=== PATIENT | male | born 1985 | race Caucasian/White ===

== ENCOUNTER 2018-09-24 10:38 | Emergency (ER) | payer SELFPAY ==
[2018-09-24] MEDS ORDERED: IBUPROFEN 400 MG TABLET. PO ONE (11:00)
[2018-09-24 12:17] VITALS: BP 137/44
--- NOTE | 2018-09-24 12:17 | RAD ---
SACRUM COCCYX 3V History: FALL ON COCCYX, PAIN Comparison: None. Findings: 3 views of the sacrum and coccyx are submitted. No acute displaced fracture is identified by radiographs. Impression: 1. No acute fracture is identified by radiographs. Electronically signed by: Ryder Aleman MD (09/24/2018 12:13 PM) [id number]
[2018-09-24] MEDS ORDERED: NAPR-683 PO (12:26)
[2018-09-24] MEDS ORDERED: CYCL-331 PO (12:26)
--- NOTE | 2018-09-24 12:26 | PHYS DOC ---
Past History Past Medical History: No Pertinent History Past Surgical History: Other Smoking: Non-smoker Alcohol Use: None Drug Use: None Adult General Chief Complaint Chief Complaint: LOWER BACK PAIN OR INJURY HPI HPI Patient is a 33 year old homeless male who presents with injury to 10 point after fall. Patient states he had a fall 4 or 5 days ago after slipping on ice and landed on his tailbone area and since then has had constant pain that getting worse with sitting down and having bowel movements. Patient denies focal neuro deficit, urine and bowel incontinence, fever and chills, nausea and vomiting, other injuries. Review of Systems Review of Systems Constitutional: Denies fever or chills [] Eyes: Denies change in visual acuity, redness, or eye pain [] HENT: Denies nasal congestion or sore throat [] Respiratory: Denies cough or shortness of breath [] Cardiovascular: No additional information not addressed in HPI [] GI: Denies abdominal pain, nausea, vomiting, bloody stools or diarrhea [] : Denies dysuria or hematuria [] Musculoskeletal: Reports back pain, denies joint pain [] Integument: Denies rash or skin lesions [] Neurologic: Denies headache, focal weakness or sensory changes [] Endocrine: Denies polyuria or polydipsia [] All other systems were reviewed and found to be within normal limits, except as documented in this note. Current Medications Current Medications Current Medications Medications (Trade) Dose Ordered Sig/[facility] Start Time Stop Time Status Last Admin Dose Admin Ibuprofen (Motrin) 800 mg 1X ONCE 09/24/18 11:00 09/24/18 11:06 DC 09/24/18 11:15 800 MG Allergies Allergies Allergies Coded Allergies Type Severity Reaction Last Updated Verified Penicillins Allergy Unknown 02/10/16 Yes amoxicillin Allergy Unknown 02/10/16 Yes codeine Allergy Unknown 02/10/16 Yes Physical Exam Physical Exam Constitutional: Well developed, well nourished, mild distress, non-toxic appearance. [] HENT: Normocephalic, atraumatic. Eyes: PERRLA, EOMI, conjunctiva normal, no discharge. [] Neck: Normal range of motion, no tenderness, supple, no stridor. [] Cardiovascular:Heart rate regular rhythm, no murmur [] Lungs & Thorax: Bilateral breath sounds clear to auscultation [] Skin: Warm, dry, no erythema, no rash. [] Back: No tenderness, no CVA tenderness, sacral area with marked tenderness without deformity or crepitation or change of color of skin. [] Extremities: No tenderness, no cyanosis, no clubbing, ROM intact, no edema. [] Neurologic: Alert and oriented X 3, normal motor function, normal sensory function, no focal deficits noted. [] Psychologic: Affect normal, judgement normal, mood normal. [] Current Patient Data Vital Signs Vital Signs Date Time Temp Pulse Resp B/P (MAP) Pulse Ox O2 Delivery O2 Flow Rate FiO2 09/24/18 12:17 61 14 137/44 (75) 98 Room Air 09/24/18 10:42 98.1 EKG EKG [] Radiology/Procedures Radiology/Procedures [address] [address] IMAGING REPORT Signed PATIENT: FERN KIRAN ACCOUNT: [id number] : 1985 LOCATION: ER AGE: 33 SEX: M EXAM STATUS: REG ER ORD. PHYSICIAN: RICHIE MUNIZ MD REASON: fall and injury to tailbone PROCEDURE: SACRUM & COCCYX 3V SACRUM COCCYX 3V History: FALL ON COCCYX, PAIN Comparison: None. Findings: 3 views of the sacrum and coccyx are submitted. No acute displaced fracture is identified by radiographs. Impression: 1. No acute fracture is identified by radiographs. Electronically signed by: Ryder Fatima MD (09/24/2018 12:13 PM) [facility] DICTATED AND SIGNED BY: RYDER FATIMA MD DATE: 09/24/18 1212 CC: RICHIE MUNIZ MD; PCP,NO ~ Course & Med Decision Making Course & Med Decision Making Pertinent Imaging studies reviewed. (See chart for details) discharge: I've spoken with the patient and/or caregivers. I've explained the patient's condition, diagnosis and treatment plan based on information available to me at this time. I've answered the patient's and/or caregivers questions and addressed any concerns. The patient and/or caregivers have a good understanding the patient's diagnosis, condition and treatment plan as can be expected at this point. Vital signs have been stabilized. The patient's condition is stable for discharge from the emergency department. The patient will pursue further outpatient evaluation with her primary care provider or other designated consulting physician as outlined in the discharge instructions. Patient and/or caregivers are agreeable to this plan of care and follow-up instructions have been explained in detail. The patient and/or caregivers have received these instructions in written format and expressed understanding of these discharge instructions. The patient and her caregivers are aware that if any significant change in condition or worsening of symptoms should prompt him to immediately return to this of the closest emergency department. If an emergent department is not readily available I would encourage him to call 911. Dragon Disclaimer Dragon Disclaimer This electronic medical record was generated, in whole or in part, using a voice recognition dictation system. Departure Departure: Impression: Primary Impression: Sacral contusion Additional Impression: Homeless Disposition: HOME, SELF-CARE (@1223) Condition: IMPROVED Referrals: PCP,NO (PCP) Patient Instructions: Tailbone Injury Additional Instructions: Apply ice on the affected area Follow-up with your primary care physician in 3-5 days Return to ER if not getting better Scripts Cyclobenzaprine Hcl (CYCLOBENZAPRINE HCL) 10 Mg Tablet 1 TAB PO TID for pain, #20 TAB Prov: RICHIE MUNIZ MD 09/24/18 Naproxen (NAPROSYN) 500 Mg Tablet 1 TAB PO BID for pain, #20 TAB Prov: RICHIE MUNIZ MD 09/24/18 Problem Qualifiers RICHIE MUNIZ MD Sep 24, 2018 12:26
== END 2018-09-24 12:32 | disposition home or self-care (01) ==
LOC: ER 10:38
DX: S30.0XXA Contusion of lower back and pelvis, initial encounter (principal); Z59.0 Homelessness; Z88.0 Allergy status to penicillin; Z88.5 Allergy status to narcotic agent; Z88.1 Allergy status to other antibiotic agents; W00.0XXA Fall on same level due to ice and snow, initial encounter; Y93.89 Activity, other specified; Y92.89 Other specified places as the place of occurrence of the external cause; Y99.8 Other external cause status
CPT/HCPCS: 72220; 99284

== ENCOUNTER 2018-12-21 18:27 | Emergency (ER) | payer SELFPAY ==
[~2018-12-21] VITALS: Ht 175.3 cm; Wt 69.3 kg
[2018-12-21 18:27] VITALS: BP 128/70
[~2018-12-21 18:27] MED LIST: CYCL-331 PO; NAPR-683 PO
--- NOTE | 2018-12-21 18:32 | ED.ADGEN ---
Past History Past Medical History: No Pertinent History Past Surgical History: Other Smoking: Non-smoker Alcohol Use: None Drug Use: None Adult General Chief Complaint Chief Complaint " I feel like I ve gotten dehydrated... " HPI HPI Patient is a 33 year old male who presents with above hx and complaints of dehydration. Patient reports heavy alcohol use today. Patient denies any trauma or recent travel. Denies any specific ill contacts. Patient denies any illicit drug use alcohol. Patient requesting rehydration. Review of Systems Review of Systems Constitutional: Denies fever or chills [] Eyes: Denies change in visual acuity, redness, or eye pain [] HENT: Denies nasal congestion or sore throat [] Respiratory: Denies cough or shortness of breath [] Cardiovascular: No additional information not addressed in HPI [] GI: Denies abdominal pain, nausea, vomiting, bloody stools or diarrhea [] : Denies dysuria or hematuria [] Musculoskeletal: Denies back pain or joint pain [] Integument: Denies rash or skin lesions [] Neurologic: Denies headache, focal weakness or sensory changes [] Endocrine: Denies polyuria or polydipsia [] All other systems were reviewed and found to be within normal limits, except as documented in this note. Family History Family History Noncontributory Current Medications Current Medications Current Medications Medications (Trade) Dose Ordered Sig/[facility] Start Time Stop Time Status Last Admin Dose Admin Lactated Ringer's 1,000 ml @ 1,000 mls/hr 1X ONCE 12/21/18 18:45 12/21/18 19:26 DC Allergies Allergies Allergies Coded Allergies Type Severity Reaction Last Updated Verified Penicillins Allergy Unknown 02/10/16 Yes amoxicillin Allergy Unknown 02/10/16 Yes codeine Allergy Unknown 02/10/16 Yes Physical Exam Physical Exam Constitutional: no acute distress, non-toxic appearance. [] HENT: Normocephalic, atraumatic, bilateral external ears normal, oropharynx I,, no oral exudates, nose normal. [] Eyes: PERRLA, EOMI, conjunctiva normal, no discharge. [] Neck: Normal range of motion, no tenderness, supple, no stridor. [] Cardiovascular:Heart rate regular rhythm, no murmur [] Lungs & Thorax: Bilateral breath sounds equal apex with scattered wheezes auscultation [] Abdomen: Bowel sounds normal, soft, no tenderness, no masses, no pulsatile masses. [] Skin: Warm, dry, no erythema, no rash. [] Back: No tenderness, no CVA tenderness. [] Extremities: No tenderness, no cyanosis, no clubbing, ROM intact, no edema. [] Neurologic: Alert and oriented X 3, normal motor function, normal sensory function, no focal deficits noted. [] Psychologic: Affect anxious ,judgement normal, mood normal. [] Current Patient Data Vital Signs Vital Signs Date Time Temp Pulse Resp B/P (MAP) Pulse Ox O2 Delivery O2 Flow Rate FiO2 12/21/18 18:27 98.1 81 14 100 Room Air EKG EKG [] Radiology/Procedures Radiology/Procedures [] Course & Med Decision Making Course & Med Decision Making Pertinent Labs and Imaging studies reviewed. (See chart for details). Patient left without discharge. Did not receive IV fluids. Very concerned when asked for a UA check levels of dehydration. Encouraged patient to stop smoking. Encouraged patient to push clear fluids. [] Final Impression Final Impression 1. Dehydration[]-complaints 2. History of alcohol abuse 3. Tobacco use Dragon Disclaimer Dragon Disclaimer This electronic medical record was generated, in whole or in part, using a voice recognition dictation system. Dragon Disclaimer This chart was dictated in whole or in part using Voice Recognition software in a busy, high-work load, and often noisy Emergency Department environment. It may contain unintended and wholly unrecognized errors or omissions. Discharge Summary Visit Information Final Diagnosis Problems Medical Problems: (1) Dehydration Status: Acute Brief Hospital Course Allergies Allergies Coded Allergies Type Severity Reaction Last Updated Verified Penicillins Allergy Unknown 02/10/16 Yes amoxicillin Allergy Unknown 02/10/16 Yes codeine Allergy Unknown 02/10/16 Yes Vital Signs Vital Signs Date Time Temp Pulse Resp B/P (MAP) Pulse Ox O2 Delivery O2 Flow Rate FiO2 12/21/18 18:27 98.1 81 14 100 Room Air Brief Hospital Course Mr. Contreras is a 33 old male who presented with complaints of dehydration. Pt. left before IV fluids or formal discharge. Discharge Information Condition at Discharge: Stable Dischare Medications Current Medications Lactated Ringer's 1,000 ml @ 1,000 mls/hr 1X ONCE IV ; Start 12/21/18 at 18:45 ; Stop 2/9/19 at 19:26; Status DC Active Scripts Active Cyclobenzaprine Hcl 10 Mg Tablet 1 Tab PO TID Naprosyn (Naproxen) 500 Mg Tablet 1 Tab PO BID ILIANA DAVIS MD Dec 21, 2018 18:32
[2018-12-21] MEDS ORDERED: IV RINGERS SOLUTION,LACTATED 1,000 ML IV ONE (18:45)
== END 2018-12-21 19:17 | disposition left against medical advice (07) ==
LOC: ER 18:27
DX: E86.0 Dehydration (principal); F10.20 Alcohol dependence, uncomplicated; Z88.0 Allergy status to penicillin; Z88.1 Allergy status to other antibiotic agents; Z88.5 Allergy status to narcotic agent; Y90.9 Presence of alcohol in blood, level not specified
CPT/HCPCS: 99281

== ENCOUNTER 2020-01-22 03:34 | Emergency (ER) | payer SELFPAY ==
[~2020-01-22] VITALS: Ht 175.3 cm; Wt 65.9 kg
[2020-01-22 03:34] VITALS: BP 146/89
--- NOTE | 2020-01-22 04:09 | PHYS DOC ---
Past History Past Medical History: No Pertinent History Past Surgical History: No Surgical History Smoking: Cigarettes Alcohol Use: None Social History Narrative: sober from [facility] Adult General Chief Complaint Chief Complaint: TESTICULAR PAIN OR INJURY HPI HPI 34-year-old male presents with report that his left scrotum is "filling with blood ". Patient reports was seen recently at [facility] and told he had irritation of his "vas deferens" and was told to decrease his intake of soda. 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 Patient appears homeless. Reports he hasn't used any drugs recently. Reports worse this morning walking back to custodial. Review of Systems Review of Systems Constitutional: Denies fever or chills Eyes: Denies redness or eye pain HENT: Denies nasal congestion or sore throat Respiratory: Denies cough or shortness of breath Cardiovascular: Denies chest pain or palpitations GI: Denies abdominal pain, nausea, or vomiting : Denies dysuria or hematuria; reports testicular pain Musculoskeletal: Denies back pain or joint pain Integument: Denies rash or skin lesions Neurologic: Denies headache, focal weakness or sensory changes Complete systems were reviewed and found to be within normal limits, except as documented in this note. Allergies Allergies Allergies Coded Allergies Type Severity Reaction Last Updated Verified Penicillins Allergy Unknown 02/10/16 Yes amoxicillin Allergy Unknown 02/10/16 Yes codeine Allergy Unknown 02/10/16 Yes Physical Exam Physical Exam Constitutional: Well developed, well nourished, disheveled, homeless appearing, non-toxic appearance HENT: Normocephalic, atraumatic, oropharynx moist Eyes: Conjunctiva normal, no discharge Neck: Normal range of motion, no tenderness, supple Cardiovascular: Heart rate normal, regular rhythm Lungs & Thorax: Bilateral breath sounds clear to auscultation, no wheezing Abdomen: Soft, no tenderness, no guarding/rebound tenderness/distention : External genitalia normal, cremasteric reflex normal, no significant swelling or enlargement of testicles Skin: Warm, dry, no erythema, no rash\\ Neurologic: Alert, no focal deficits noted Psychologic: Affect delusional, judgment poor Current Patient Data Vital Signs Vital Signs Date Time Temp Pulse Resp B/P (MAP) Pulse Ox O2 Delivery O2 Flow Rate FiO2 01/22/20 03:34 98.5 81 18 146/89 (108) 98 Room Air EKG EKG [] Radiology/Procedures Radiology/Procedures Ultrasound the scrotum. HISTORY: Left testicular pain Ultrasound was used to evaluate the scrotum. Right testicle was normal in size and appearance. Right epididymis is within normal limits. There is no significant right hydrocele. Left testicle was normal in size and appearance. There is a small left hydrocele. Left epididymis does not appear enlarged. There is a left varicocele. There is normal flow to the testicles and epididymis on each side. There is not evidence of torsion. IMPRESSION: 1. Small left hydrocele. 2. Left varicocele. 3. There is not evidence of torsion. 4. No testicular mass noted. Electronically signed by: Paul Milligan MD (01/22/2020 5:31 AM) [id number] Course & Med Decision Making Course & Med Decision Making Pertinent Labs and Imaging studies reviewed. (See chart for details) Fullness appearing male presents with report that his left scrotum is "filling up with blood ". No history of trauma. No significant signs of injury noted. UA obtained without acute process. Urine Chlamydia/gonorrhea pending. Ultrasound obtained with findings of mild left varicocele and hydrocele, normal testicular flow appreciated.. Patient also appears homeless and delusional. Patient stable for discharge with outpatient follow-up with PCP/urologist/psychiatrist. Discussed findings and plan with patient, who acknowledges understanding and agreement. Dragon Disclaimer Dragon Disclaimer This electronic medical record was generated, in whole or in part, using a voice recognition dictation system. Departure Departure: Impression: Primary Impression: Testicular pain, left Additional Impressions: Left varicocele Left hydrocele Disposition: HOME, SELF-CARE Condition: STABLE Referrals: PCP,NO (PCP) Patient Instructions: Testicular Problems and Self-Exam Additional Instructions: You may benefit from further evaluation with an Urologist and/or clinic. Problem Qualifiers LE LUJAN DO Jan 22, 2020 04:09
[2020-01-22 04:26] LABS: BARBITURATES NEG (NEG); BENZODIAZEPINES NEG (NEG); CANNABINOIDS NEG (NEG); COCAINE NEG (NEG); METHADONE NEG (NEG); OPIATES NEG (NEG); PHENCYCLIDINE NEG (NEG)
[2020-01-22 04:28] LABS: AMPHETAMINE/METHAMPHETAMINE NEG (NEG)
[2020-01-22 04:30] LABS: BACTERIA,URINE 0 /HPF (0-FEW); BILIRUBIN,URINE NEG (NEG); CLARITY,URINE CLEAR; COLOR,URINE YELLOW; GLUCOSE,URINE NEG (NEG); NITRITE,URINE NEG (NEG); RBC,URINE 0 /HPF (0-2); SQUAMOUS EPITHELIAL CELL,UR OCC /LPF; UROBILINOGEN,URINE 0.2 mg/dL (0.2 mg/dL); WBC,URINE RARE /HPF (0-4)
--- NOTE | 2020-01-22 05:33 | RAD ---
Ultrasound the scrotum. HISTORY: Left testicular pain Ultrasound was used to evaluate the scrotum. Right testicle was normal in size and appearance. Right epididymis is within normal limits. There is no significant right hydrocele. Left testicle was normal in size and appearance. There is a small left hydrocele. Left epididymis does not appear enlarged. There is a left varicocele. There is normal flow to the testicles and epididymis on each side. There is not evidence of torsion. IMPRESSION: 1. Small left hydrocele. 2. Left varicocele. 3. There is not evidence of torsion. 4. No testicular mass noted. Electronically signed by: Paul Milligan MD (01/22/2020 5:31 AM) [id number]
== END 2020-01-22 05:32 | disposition home or self-care (01) ==
LOC: ER 03:34
DX: I86.1 Scrotal varices (principal); N43.3 Hydrocele, unspecified; F17.210 Nicotine dependence, cigarettes, uncomplicated; Z59.0 Homelessness; Z88.0 Allergy status to penicillin; Z88.1 Allergy status to other antibiotic agents; Z88.5 Allergy status to narcotic agent
CPT/HCPCS: 36415; 76870; 80307; 81001; 87491; 87591; 99284

== ENCOUNTER 2020-09-11 17:05 | Emergency (ER) | payer SELFPAY ==
[~2020-09-11] VITALS: Ht 175.3 cm; Wt 65.9 kg
[2020-09-11 17:41] VITALS: BP 116/73
--- NOTE | 2020-09-11 18:50 | PHYS DOC ---
Past History Past Medical History: No Pertinent History, Prostatitis Past Medical History History of epididymitis , hydroceles, variceals Past Surgical History: No Surgical History Smoking: Cigarettes Alcohol Use: None General Adult EDM: Chief Complaint: GROIN PAIN HPI: HPI: Patient is a 35 year old male who presents with above hx and complaints of groin. Checked lobby and patient's room several times but was never in the room. Informed by nursing patient had eloped. Review of Systems: Review of Systems: Reported history of groin pain Allergies: Allergies: Allergies Coded Allergies Type Severity Reaction Last Updated Verified Penicillins Allergy Unknown 02/10/16 Yes amoxicillin Allergy Unknown 02/10/16 Yes codeine Allergy Unknown 02/10/16 Yes Physical Exam: PE: No exam or history patient eloped EKG: EKG: [] Radiology/Procedures: Radiology/Procedures: [] Heart Score: Risk Factors: Risk Factors: DM, Current or recent (<one month) smoker, HTN, HLP, family history of CAD, obesity. Risk Scores: Score 0 - 3: 2.5% MACE over next 6 weeks - Discharge Home Score 4 - 6: 20.3% MACE over next 6 weeks - Admit for Clinical Observation Score 7 - 10: 72.7% MACE over next 6 weeks - Early Invasive Strategies Course & Med Decision Making: Course & Med Decision Making Pertinent Labs and Imaging studies reviewed. (See chart for details) Informed patient eloped before exam, labs or history. [] Dragon Disclaimer: Dragon Disclaimer: This electronic medical record was generated, in whole or in part, using a voice recognition dictation system. Departure Departure: Disposition: 01 [place] HOME SELF CARE/HOMELESS Condition: STABLE Referrals: PCP,NO (PCP) [place] Disclaimer This chart was dictated in whole or in part using Voice Recognition software in a busy, high-work load, and often noisy Emergency Department environment. It may contain unintended and wholly unrecognized errors or omissions. ILIANA DAVIS MD Sep 11, 2020 18:50
== END 2020-09-11 19:00 | disposition left against medical advice (07) ==
LOC: ER 17:05
DX: R10.30 Lower abdominal pain, unspecified (principal); F17.210 Nicotine dependence, cigarettes, uncomplicated; Z88.0 Allergy status to penicillin; Z88.1 Allergy status to other antibiotic agents; Z88.5 Allergy status to narcotic agent
CPT/HCPCS: 99281